=== PATIENT | female | born 1960 | race Caucasian/White ===

== ENCOUNTER → 2025-01-13 | Outpatient (CLI) | payer OTHER, SELFPAY ==
[2025-01-13 12:06] LABS: Mucous, Urine 0 SEEN /hpf (<or=2+)
[2025-01-13 12:51] LABS: Color, Urine Yellow (Yellow); Glucose, Dipstick 1000 mg/dl (Normal); Ketone-Dipstick Negative (Negative); Leukocyte Esterase-Dipstick 500 /ul (Negative); Nitrite-Dipstick Positive (Negative); Occult Blood-Urine 150 /ul (Negative); Protein-Dipstick 100 mg/dl (Negative); Urine Bilirubin Dipstick Negative (Negative); Urine Clarity Sl. Cloudy (Clear); Urine Urobilinogen Normal (Normal)
[2025-01-13 13:04] LABS: Bacteria 1+ /hpf (None Seen); Red Blood Cells-Urine 0-5 SEEN /hpf (0-5); Squamous Epithelial Cells - UA 0-5 SEEN /hpf (5-10); White Blood Cells 50-100 SEEN /hpf (0-5)
== END | disposition home or self-care (01) ==
PROVIDERS: PCP Nurse Practitioner Family; Referring Provider Nurse Practitioner Family; Visit Provider Nurse Practitioner Family
DX: R35.0 Frequency of micturition (principal)
CPT/HCPCS: 81001

== ENCOUNTER → 2025-03-10 | Outpatient (CLI) | payer OTHER, SELFPAY ==
[2025-03-10 13:05] LABS: Microalbumin:Creatinine Ratio 1521.1 mg/g CRE
[2025-03-10 13:21] LABS: ALB/GLOB Ratio 1.3 RATIO (0.9-2.4); AST(SGOT) 24 U/L (<=31); Alanine Aminotransfer ALT/SGPT 22 U/L (<=34); Albumin, Serum 4.1 g/dL (3.4-4.8); Alkaline Phosphatase 86 U/L (35-104); Anion Gap 11 (5-15); BUN 26 mg/dL (4-19); BUN/Creat Ratio 31.3 RATIO (10-20); Calcium,Total 9.7 mg/dL (7.6-11.0); Carbon Dioxide 24.2 mmol/L (21.0-32.0); Chloride 101 mmol/L (98-108); Cholesterol 219 mg/dL (<=200); Creatinine, Serum 0.84 mg/dL (0.70-1.20); EST Glomerular Filtration Rate 79 (>60); Globulin 3.2 g/dL (2.2-4.2); Glucose 163 mg/dL (70-99); High Density Lipoprotein 45 mg/dL; Low Density Lipoprotein Calc. 138 mg/dL; Potassium 4.5 mmol/L (3.3-5.1); Protein, Total 7.3 g/dL (5.9-8.4); Sodium Level 137 mmol/L (133-145); Total Bilirubin 0.29 mg/dL (0.00-1.30); Triglycerides 182 mg/dL; Very Low Density Lipoprotein 36 mg/dL (5-40); Vitamin D,25 Hydroxy 37.9 ng/mL (30-100); cholesterol:hdl ratio screen 4.92
== END | disposition home or self-care (01) ==
LOC: LAB 11:58
PROVIDERS: PCP Nurse Practitioner Family; Referring Provider Nurse Practitioner Family; Visit Provider Nurse Practitioner Family
DX: E11.29 Type 2 diabetes mellitus with other diabetic kidney complication (principal); Z79.4 Long term (current) use of insulin; R80.9 Proteinuria, unspecified
CPT/HCPCS: 36415; 80053; 80061; 82043; 82306; 82570; 84443

== ENCOUNTER 2025-05-17 17:40 | Emergency (ER) | payer OTHER, SELFPAY ==
[2025-05-17 17:41] VITALS: BP 170/83; PULSE 83; RESP 16; TEMP 36.1; O2SAT 100; BMI 36.1
--- NOTE | 2025-05-17 17:57 | EX.ED.DYSGE1 ---
HPI History of Present Illness Chief Complaint: General Illness Informant: patient and spouse/S.O. Onset/Context/Timing Onset: Days Context: Gradual Onset Timing: Continuous Current Severity: Mild Maximum Severity: Mild Narrative Narrative: 64-year-old female history of diabetes and hypertension currently on Ozempic. States for about the last week since last Friday she has had nausea vomiting. She had limited diarrhea took Imodium that resolved. States she has had increased gas. Decreased p.o. intake due to the nausea. No abdominal pain. No fever. She is diabetic her blood sugars have been running around 200. She denies any urinary symptoms. Spoke to her nurse practitioner wonder come in to the emergency department for further evaluation. She has never had any abdominal or pelvic surgeries. Prior similar symptoms: No Recent Illness/Hospitalization: No [facility] Medical History Subacute cough Retinopathy due to secondary diabetes Neuropathy Diabetes Hypertension Home Medications ?Medication ?Instructions ?Recorded ?Last Taken ?Type cholecalciferol (vitamin D3) 125 125 mcg PO DAILY 09/04/23 Unknown History mcg (5,000 unit) capsule cinnamon bark 500 mg capsule 500 mg PO DAILY 09/04/23 Unknown History vit 122-ferrous fumarate 1 tab PO DAILY 09/04/23 Unknown History 27 mg iron-folic acid 800 mcg tablet ( Multi) psyllium husk 3.4 gram/5.4 gram 2 tsp PO DAILY 09/04/23 Unknown History oral powder (Metamucil) Tresiba FlexTouch U-200 200 55 unit (0.275 mL) subcut DAILY 08/12/24 Unknown Rx unit/mL (3 mL) subcutaneous pen #27 mL (insulin degludec) losartan 25 mg tablet 50 mg PO DAILY 08/12/24 Unknown History semaglutide 0.25 mg or 0.5 mg (2 0.5 mg (0.736 mL) subcut QWEEK #6 08/12/24 Unknown Rx mg/3 mL) subcutaneous pen injector mL (Ozempic) blood-glucose sensor (FreeStyle #6 ea 03/10/25 Unknown Rx Paulie 3 Plus Sensor device) omeprazole 20 mg capsule,delayed 20 mg PO BID #180 caps 03/10/25 Unknown Rx release glimepiride 4 mg tablet 4 mg PO BID #180 tabs 04/29/25 Unknown Rx metformin 500 mg tablet 1,000 mg (2 x 500 mg) PO BID #360 05/09/25 Unknown Rx tabs cephalexin 500 mg capsule 500 mg PO Q6 7 days #28 CAPSULES 05/17/25 Unknown Rx fluconazole 200 mg tablet 200 mg PO DAILY #2 tabs 05/17/25 Unknown Rx (Diflucan) ondansetron 4 mg disintegrating 4 mg PO Q8H PRN nausea and 05/17/25 Unknown Rx tablet vomiting #10 tabs Allergy/AdvReac Type Severity Reaction Status Date / Time amoxicillin Allergy gives Verified 05/17/25 17:41 yeast infection Family History Father COPD (chronic obstructive pulmonary disease) Mother Diabetes Social History Smoking Status: Former smoker alcohol intake: current details: rarely substance use type: marijuana what type of physical activity do you participate in: none ROS ROS ED ROS Narrative Nausea and vomiting. Diarrhea resolved. No dysuria. No fever. No abdominal pain. Constitutional Constitutional ED: Denies chills or fever(s) Eyes Eyes: Denies blurry vision ENT ENT ED: Denies ear pain Cardiovascular Cardiovascular: Denies chest pain Respiratory/Chest Respiratory/Chest: Denies cough or dyspnea Gastrointestinal Gastrointestinal: Reports diarrhea, nausea and vomiting; Denies abdominal pain, constipation or melena Genitourinary Genitourinary ED: Denies dysuria or hematuria Musculoskeletal Musculoskeletal: Denies arthralgias or back pain Integumentary Denies abscess Neurologic Neurologic: Denies headache(s) Psychiatric Psychiatric: Denies anxiety Endocrine Endocrinology: Denies cold intolerance Hematologic/Lymphatic Hematologic/Lymphatic: Reports none Allergic/Immunologic Allergic/Immunologic ED: Denies mouth swelling, tongue swelling or urticaria EXAM Physical Exam Narrative Exam Narrative: 64-year-old female vital signs stable afebrile. Does not look septic toxic no acute distress. at bedside. H EENT exam given rhinorrhea and light. Mytrex members. Neck nontender no JVD. No lymphadenopathy. Lungs clear to auscultation bilaterally. Heart regular rhythm rate about 80 no murmur. Chest wall ribs nontender. Abdomen soft, nontender, nondistended, normal bowel sounds without peritoneal signs. No localizing tenderness. Right upper right lower quadrant unremarkable. No rebound guarding rigidity. No hernia or mass. No obstruction. Back nontender. Neurologically patient is awake alert. Answer question following commands. No focal motor deficits. Benign exam. Const Vital Signs: 05/17/25 17:41 05/17/25 19:40 Temperature 96.9 F L 98.1 F Temperature Source Temporal Oral Pulse Rate 83 78 Respiratory Rate 16 16 Blood Pressure 170/83 H 174/73 H Blood Pressure Mean 112 106 Pulse Ox 100 99 Oxygen Delivery Method Room Air Room Air Positive well nourished and well developed; Negative for cachectic, contractures or unkempt General Appearance ED: well developed and NAD; Negative for unkempt, cachectic, contractures, cyanotic, diaphoretic or pallor Nutritional Appearance: Negative for cachectic HEENT Reports moist mucous membranes Eyes PERRL and EOMs intact bilaterally Neck no lymphadenopathy, supple and no JVD General: Negative for tenderness Chest Wall inspection of chest normal and palpation of chest normal Resp normal respiratory effort and clear to auscultation bilaterally Cardio regular rate, regular rhythm, S1 normal heart sound, S2 normal heart sound and no murmurs GI normal to inspection, nondistended, normoactive bowel sounds, non-tender, non-distended and no masses Auscultation: normoactive bowel sounds Palpation: soft; Negative for tender, guarding or rebound tenderness present Back/Spine no CVA tenderness General Back: Negative for CVA tenderness Cervical Spine: Negative for cervical spine tenderness Thoracic Spine / Upper Back: Negative for thoracic spinal tenderness or paraspinal muscle tenderness Lumbar Spine / Lower Back: Negative for lumbar spinal tenderness Extremity normal to inspection General Extremety ED: Negative for edema or tenderness General Extremity: Negative for edema Neuro oriented x3 and CN's II-XII intact bilaterally Sensorium / Orientation: alert; Negative for orientation impaired, lethargic or stuporous Motor Exam: strength 5/5 throughout Psych mental status grossly normal Appearance: Negative for unkempt Attitude: No agitated Mood & Affect: Negative for depressed, anxious or tearful Skin no rashes or lesions noted and no wounds General Skin Exam: Negative for jaundice or pallor Lesions: No lesion noted Rashes: No rashes noted Trauma: Negative for abrasion Wounds: Negative for wounds noted MDM MDM MDM Narrative Medical decision making narrative: 64-year-old female on Ozempic with nausea vomiting diarrhea diarrhea since resolved after Imodium. Abdomen is benign she is having no pain. Screening labs to be obtained. I do not think she needs imaging at this time unless the labs are significantly abnormal. She is having no urinary symptoms we will also obtain a UA. She will be given IV fluids times a liter and Zofran for nausea. Repeat exam at 7:50 PM. Patient is doing well. She received a liter of fluid. We went over her lab test. She is comfortable as his families are being discharged home. She will be treated for UTI. Urine culture was sent. She will be started on Keflex first dose given here. She be given a prescription for Keflex filled here at the hospital along with Zofran for nausea and Diflucan because she gets yeast infections after antibiotics. She instructed follow-up with her nurse practitioner later this week to be reevaluated also she needs her labs rechecked in 1 to 2 weeks to ensure that her kidney function is improving. They are all comfortable with the plan. History & Record Review Discussion w/independent historian: Patient Additional record(s) reviewed:: Prior inpatient record, Prior outpatient record, Prior ED visit and Prior labs Lab Data Attestation: I reviewed the patient's lab results. Lab results narrative: CBC normal. White count of 9.3. H&H 13 and 39. Platelets 305. Chemistries show a sodium 134. Potassium 5.2. Gap 14. BUN/creatinine of 37 and 1.61. Prior creatinine was 0.8. UA is positive for nitrites. No red cells. Greater than 100 white cells. No bacteria. Culture will be sent Labs: Laboratory Results - last 24 hr 05/17/25 05/17/25 18:14 18:15 WBC 9.3 RBC 4.39 Hgb 13.3 Hct 39.1 MCV 89.1 MCH 30.3 MCHC 34.0 RDW Std Deviation 38.8 RDW Coeff of Emerita 11.9 Plt Count 305 MPV 11.6 Immature Gran % (Auto) 0.300 Neut % (Auto) 70.6 H Lymph % (Auto) 20.5 Miller % (Auto) 7.5 Eos % (Auto) 0.6 Baso % (Auto) 0.5 Absolute Neuts (auto) 6.5 Absolute Lymphs (auto) 1.90 Nucleated RBC % 0 Sodium 134 Potassium 5.2 H Chloride 98 Carbon Dioxide 21.8 Anion Gap 14 BUN 37 H Creatinine 1.61 H Estim Creat Clear Calc 42.07 L Est GFR (MDRD) Non-Af 36 L BUN/Creatinine Ratio 22.7 H Glucose 251 H Calcium 9.7 Total Bilirubin 0.33 AST 34 H ALT 20 Alkaline Phosphatase 95 Total Protein 7.8 Albumin 4.0 Globulin 3.9 Albumin/Globulin Ratio 1.0 Lipase 28 Urine Color Yellow Urine Clarity Sl. Cloudy Urine pH 6.0 Ur Specific [place] 1.015 Urine Protein 30 H Urine Glucose (UA) 100 H Urine Ketones Negative Urine Occult Blood 25 H Urine Nitrite Positive H Urine Bilirubin Negative Urine Urobilinogen Normal Ur Leukocyte Esterase 500 H Urine RBC 0 SEEN Urine WBC >100 SEEN Ur Squamous Epith Cells 0 SEEN Urine Bacteria 0 SEEN Urine Mucus 0 SEEN Discharge Plan Triage Chief Complaint: General Illness ED Provider: Denilson Agarwal Dx/Rx/DC Orders Clinical Impression: UTI (urinary tract infection), Nausea & vomiting, Acute dehydration, Creatinine elevation Instructions: Urinary Tract Infections in Women, ED Dehydration (Adult) Prescriptions: New cephalexin 500 mg capsule 500 mg PO Q6 7 Days Qty: 28 0RF ondansetron 4 mg tablet,disintegrating 4 mg PO Q8H PRN (Reason: nausea and vomiting) Qty: 10 0RF fluconazole [Diflucan] 200 mg tablet 200 mg PO DAILY Qty: 2 0RF Rx Instructions: Take 1 after you are finished antibiotics. If you have any signs of a yeast infection take the second 1 in 3 days. No Action cholecalciferol (vitamin D3) 125 mcg (5,000 unit) capsule 125 mcg PO DAILY cinnamon bark 500 mg capsule 500 mg PO DAILY Metamucil 3.4 gram/5.4 gram powder 2 tsp PO DAILY Rx Instructions: mix into at least 8 oz of water or juice before administering Multi 27-800 mg-mcg tablet 1 tab PO DAILY losartan 25 mg tablet 50 mg PO DAILY insulin degludec [Tresiba FlexTouch U-200] 200 unit/mL (3 mL) insulin pen 55 unit subcut DAILY Qty: 27 1RF Ozempic 0.25 mg or 0.5 mg (2 mg/3 mL) pen injector 0.5 mg subcut QWEEK Qty: 6 1RF (DME) FreeStyle Paulie 3 Plus Sensor Device See Rx Instructions .Route Qty: 6 1RF Rx Instructions: 1 sensor q 15 days omeprazole 20 mg capsule,delayed release(DR/EC) 20 mg PO BID Qty: 180 1RF glimepiride 4 mg tablet 4 mg PO BID Qty: 180 1RF metformin 500 mg tablet 1,000 mg PO BID Qty: 360 1RF Primary Care Provider: Toyin Gonzalez Referrals: Toyin Gonzalez, [employer] [facility] [employer] [Primary Care Provider] - 3-5 Days Activity Restrictions/Additional Instructions: Follow-up with your primary care provider in 3 to 5 days to ensure you are improving. Plenty of fluids and rest. To rehydrate you and improve your kidney function. The antibiotic Keflex 1 pill 4 times a day for 1 week to treat the urinary tract infection. A urine culture will be sent. That should be back in 24 to 48 hours. If that does not match the antibiotic we will notify you. Zofran as needed for nausea. The Diflucan to prevent or treat a yeast infection after the antibiotics are finished. Return if feeling worse. Off work today. Print Language: Mozambican Disposition Disposition: Home, Self Care
[2025-05-17] MEDS: 0.9% Normal Saline (1000mL) 1,000 ML 999 ML IV (18:11)
[2025-05-17 18:20] LABS: Mucous, Urine 0 SEEN /hpf (<or=2+); Red Blood Cells-Urine 0 SEEN /hpf (0-5); Squamous Epithelial Cells - UA 0 SEEN /hpf (5-10)
[2025-05-17 18:22] LABS: Hematocrit 39.1 % (37-47); Hemoglobin 13.3 g/dL (12.0-15.0); Immature Granulocytes Count 0.030 X10^3/uL (0.0-0.0); Mean Corp Hgb Conc 34.0 g/dL (32-36); Mean Corpuscular Volume 89.1 fL (81-99); Mean Platelet Vol. 11.6 fl (6.2-12.0); NRBC Flagged by Analyzer 0 % (0-5); Platelet Count 305 K/mm3 (150-450); RBC Distribution Width CV 11.9 % (11.6-14.6); RBC Distribution Width SD 38.8 fl (35.1-43.9); Red Blood Count 4.39 M/mm3 (4.2-5.4); White Blood Count 9.3 K/mm3 (4.4-11.0)
[2025-05-17 18:22] LABS: Color, Urine Yellow (Yellow); Glucose, Dipstick 100 mg/dl (Normal); Ketone-Dipstick Negative (Negative); Leukocyte Esterase-Dipstick 500 /ul (Negative); Nitrite-Dipstick Positive (Negative); Occult Blood-Urine 25 /ul (Negative); Protein-Dipstick 30 mg/dl (Negative); Specific Gravity, Urine 1.015 (1.002-1.030); Urine Bilirubin Dipstick Negative (Negative)
[2025-05-17 19:08] LABS: Lipase 28 U/L (13-75)
[2025-05-17 19:14] LABS: AST(SGOT) 34 U/L (<=31); Alanine Aminotransfer ALT/SGPT 20 U/L (<=34); Albumin, Serum 4.0 g/dL (3.4-4.8); Alkaline Phosphatase 95 U/L (35-104); Anion Gap 14 (5-15); BUN 37 mg/dL (4-19); BUN/Creat Ratio 22.7 RATIO (10-20); Calcium,Total 9.7 mg/dL (7.6-11.0); Carbon Dioxide 21.8 mmol/L (21.0-32.0); Chloride 98 mmol/L (98-108); Estimated Creatinine Clearance 42.07 ml/min (50-250); Globulin 3.9 g/dL (2.2-4.2); Glucose 251 mg/dL (70-99); Potassium 5.2 mmol/L (3.3-5.1)
[2025-05-17 19:40] VITALS: BP 174/73; PULSE 78; RESP 16; TEMP 36.7; O2SAT 99
[2025-05-17 20:02] VITALS: BP 174/73; PULSE 78; RESP 16; TEMP 36.7; O2SAT 99
== END 2025-05-17 20:18 | disposition home or self-care (01) ==
PROVIDERS: Emergency Provider Emergency Medicine; PCP Nurse Practitioner Family; Visit Provider Emergency Medicine
DX: N39.0 Urinary tract infection, site not specified (principal); E11.319 Type 2 diabetes mellitus with unspecified diabetic retinopathy without macular edema; E11.40 Type 2 diabetes mellitus with diabetic neuropathy, unspecified; R79.89 Other specified abnormal findings of blood chemistry; E86.0 Dehydration; R11.2 Nausea with vomiting, unspecified; Z87.891 Personal history of nicotine dependence; F12.90 Cannabis use, unspecified, uncomplicated; I10 Essential (primary) hypertension
CPT/HCPCS: 80053; 81001; 83690; 85025; 87077; 87086; 87088; 87186; 96361; 96374; 99283; A4216; J2405